=== PATIENT | female | born 2000 | race Caucasian/White ===

== ENCOUNTER 2021-04-25 14:30 | Emergency (ER) | payer BC, OTHER ==
[2021-04-25 15:23] LABS: BLOOD UREA NITROGEN,BUN 11 mg/dL (7.0-18.0); CARBON DIOXIDE,CO2 26.7 mmol/L (21.0-32.0); CHLORIDE,CL 103 mmol/L (98-107); GLUCOSE RANDOM 111 mg/dL (74-106); POTASSIUM,K 3.7 mmol/L (3.5-5.1); SODIUM,NA 138 mmol/L (136-145)
--- NOTE | 2021-04-25 15:54 | EDM.PDOC ---
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 She reports she is approximately 4 weeks , has had 3+ tests at home. This morning she woke up and went to the bathroom when she noted some blood on the toilet tissue. Throughout the day the bleeding has increased similar to a menstrual period. She does have lab work tomorrow scheduled for a quantitative hCG. 1 para 0. No recent pelvic activity or trauma. Patient denies any fever, chills, headache, change in vision, syncope or near syncope. Denies any chest pain, back pain, shortness of breath or cough. Denies any vomiting, diarrhea, constipation or dysuria. Review of systems: As per history of present illness and below otherwise all systems reviewed and negative. Past medical history: As per history of present illness and as reviewed below otherwise noncontributory. Surgical history: As per history of present illness and as reviewed below otherwise noncontributory. Social history: See social history for further information Family history: As per history of present illness and as reviewed below otherwise noncontributory. Physical exam: General: Well developed and well nourished 21-year-old female. Alert and orientated x 3. Nontoxic in appearance and in no acute distress. Vital signs are stable and have been reviewed by me. Nursing notes were reviewed. HEENT: Atraumatic, normocephalic, pupils equal and reactive bilaterally, negative for conjunctival pallor or scleral icterus, mucous membranes moist, TMs normal bilaterally, throat clear, neck supple, nontender, trachea midline. No drooling or trismus noted. No meningeal signs. No hot potato voice noted. Lungs: Clear to auscultation bilaterally. No wheezes, rales, or rhonchi. Chest nontender. Normal work of breathing, no accessory muscles used. Heart: S1S2, regular rate and rhythm without overt murmur, gallops, or rubs. No JVD. No peripheral edema Abdomen: Soft, nondistended, nontender. Normoactive bowel sounds. Negative for masses or costovertebral tenderness. Skin: Intact, warm, dry. No lesions or rashes noted. Hematologic: No petechiae or purpra. Mucosa appropriate color and normal nail bed color and refill. Extremities: Atraumatic, moves all extremities per self without difficulty or deficits, negative for cords or calf pain. Neurovascular unremarkable. Neuro: Awake, alert, oriented. Cranial nerves II through XII unremarkable. Cerebellum unremarkable. Motor and sensory unremarkable throughout. Exam nonfocal. Psychiatric: Mood and affect are appropriate. Normal thought process. Answering questions appropriately. Notes: *This patient was seen and evaluated during the 2019 SARS-CoV-2 novel coronavirus pandemic period. Community viral transmission is ongoing at time of this encounter and the emergency department is operating under pandemic response procedures. Labs show a Quant HCG 8. Ultrasound shows no findings for intrauterine pre gnancy. Endometrial stripe measures 4 millimeters. Small amount of fluid in the endometrial cavity. Normal ovaries normal blood flow to both ovaries. No adnexal mass. No free fluid. I have talked with the patient about today's findings, in addition to providing specific details for plan of care. Encouraged her to have her quantitative hCG repeated in 1 to 2 days. She states she does have an appo intment tomorrow, will follow up with these findings. Reassessment at the time of disposition demonstrates that the patient is in no acute distress. The patient is stable for discharge, counseling was provided and we discussed in great detail signs and symptoms that would prompt them to return to the Emergency Department. Medication, follow up and supportive care measures were reviewed and discussed. Voices understanding and is agreeable to plan of care. Denies any further questions or concerns at this time. Diagnostics: CBC, CMP, Quant HCG, UA, Therapeutics: None Prescription: None Impression: Threatened miscarriage Plan: 1. Please start and/or continue to take your vitamin with folic acid once daily. 2. Pelvic rest until cleared by your OBGYN (no tampons, sex, etc...) 3. Tylenol as needed for pain management. 4. Follow up with your SOCIAL INSURANCE ANALYST in the next 1-2 days. If your symptoms should worsen, new symptoms develop or any of the signs and symptoms we discussed should arise please return to the emergency room or call 911 (if needed). Definitive disposition and diagnosis as appropriate pending reevaluation and review of above. lower abdominal Pain Score (Numeric/FACES): 8 - Related Data Allergies Allergy/AdvReac Type Severity Reaction Status Date / Time No Known Allergies Allergy Verified 04/25/21 14:48 Home Meds: Home Meds . [No Known Home Meds] 04/25/21 [History] Past Medical History - Past Health History Medical/Surgical History: Denies Medical/Surgical History Respiratory History: Reports: Asthma - Infectious Disease History Infectious Disease History: Reports: Chicken Pox, Novel Coronavirus Social & Family History - Family History Family Medical History: No Pertinent Family History - Tobacco Use Tobacco Use Status *Q: Never Tobacco User - Recreational Drug Use Recreational Drug Use: No ED ROS GENERAL - Review of Systems Review Of Systems: Comprehensive ROS is negative, except as noted in HPI. ED EXAM - Physical Exam Exam: See Below (See dictation) Course - Vital Signs Last Recorded V/S: Last Vital Signs Temp 96.8 F L 04/25/21 14:44 Pulse 99 04/25/21 17:25 Resp 16 04/25/21 17:25 BP 130/82 04/25/21 17:25 Pulse Ox 98 04/25/21 17:25 - Orders/Labs/Meds Labs: Laboratory Tests 04/25/21 04/25/21 04/25/21 Range/Units 15:00 15:00 15:00 WBC 8.11 (4.0-11.0) K/uL RBC 4.94 (4.30-5.90) M/uL Hgb 14.6 (12.0-16.0) g/dL Hct 43.6 (36.0-46.0) % MCV 88.3 (80.0-98.0) fL MCH 29.6 (27.0-32.0) pg MCHC 33.5 (31.0-37.0) g/dL RDW Std Deviation 39.1 (28.0-62.0) fl RDW Coeff of Alesia 12 (11.0-15.0) % Plt Count 342 (150-400) K/uL MPV 10.30 (7.40-12.00) fL Neut % (Auto) 61.1 (48.0-80.0) % Lymph % (Auto) 24.0 (16.0-40.0) % Billings % (Auto) 5.7 (0.0-15.0) % Eos % (Auto) 9.0 H (0.0-7.0) % Baso % (Auto) 0.2 (0.0-1.5) % Neut # (Auto) 5.0 (1.4-5.7) K/uL Lymph # (Auto) 2.0 (0.6-2.4) K/uL Billings # (Auto) 0.5 (0.0-0.8) K/uL Eos # (Auto) 0.7 (0.0-0.7) K/uL Baso # (Auto) 0.0 (0.0-0.1) K/uL Nucleated RBC % 0.0 /100WBC Nucleated RBCs # 0 K/uL Sodium 138 (136-145) mmol/L Potassium 3.7 (3.5-5.1) mmol/L Chloride 103 (98-107) mmol/L Carbon Dioxide 26.7 (21.0-32.0) mmol/L BUN 11 (7.0-18.0) mg/dL Creatinine 0.7 (0.6-1.0) mg/dL Est Cr Clr Drug Dosing 98.86 mL/min Estimated GFR (MDRD) > 60.0 ml/min Glucose 111 H (74-106) mg/dL Calcium 8.9 (8.5-10.1) mg/dL Total Bilirubin 0.8 (0.2-1.0) mg/dL AST 16 (15-37) IU/L ALT 26 (14-63) IU/L Alkaline Phosphatase 56 (46-116) U/L Total Protein 8.1 (6.4-8.2) g/dL Albumin 3.9 (3.4-5.0) g/dL Globulin 4.2 H (2.6-4.0) g/dL Albumin/Globulin Ratio 0.9 (0.9-1.6) HCG, Quant 8.0 mIU/mL Urine Color Urine Appearance Urine pH (5.0-8.0) Ur Specific Oldham (1.001-1.035) Urine Protein (NEGATIVE) mg/dL Urine Glucose (UA) (NEGATIVE) mg/dL Urine Ketones (NEGATIVE) mg/dL Urine Occult Blood (NEGATIVE) Urine Nitrite (NEGATIVE) Urine Bilirubin (NEGATIVE) Urine Urobilinogen (<2.0) EU/dL Ur Leukocyte Esterase (NEGATIVE) Urine RBC (0-2/HPF) Urine WBC (0-5/HPF) Ur Epithelial Cells (NONE-FEW) Urine Bacteria (NEGATIVE) Urine Mucus (NONE-MOD) 04/25/21 Range/Units 15:17 WBC (4.0-11.0) K/uL RBC (4.30-5.90) M/uL Hgb (12.0-16.0) g/dL Hct (36.0-46.0) % MCV (80.0-98.0) fL MCH (27.0-32.0) pg MCHC (31.0-37.0) g/dL RDW Std Deviation (28.0-62.0) fl RDW Coeff of Alesia (11.0-15.0) % Plt Count (150-400) K/uL MPV (7.40-12.00) fL Neut % (Auto) (48.0-80.0) % Lymph % (Auto) (16.0-40.0) % Billings % (Auto) (0.0-15.0) % Eos % (Auto) (0.0-7.0) % Baso % (Auto) (0.0-1.5) % Neut # (Auto) (1.4-5.7) K/uL Lymph # (Auto) (0.6-2.4) K/uL Billings # (Auto) (0.0-0.8) K/uL Eos # (Auto) (0.0-0.7) K/uL Baso # (Auto) (0.0-0.1) K/uL Nucleated RBC % /100WBC Nucleated RBCs # K/uL Sodium (136-145) mmol/L Potassium (3.5-5.1) mmol/L Chloride (98-107) mmol/L Carbon Dioxide (21.0-32.0) mmol/L BUN (7.0-18.0) mg/dL Creatinine (0.6-1.0) mg/dL Est Cr Clr Drug Dosing mL/min Estimated GFR (MDRD) ml/min Glucose (74-106) mg/dL Calcium (8.5-10.1) mg/dL Total Bilirubin (0.2-1.0) mg/dL AST (15-37) IU/L ALT (14-63) IU/L Alkaline Phosphatase (46-116) U/L Total Protein (6.4-8.2) g/dL Albumin (3.4-5.0) g/dL Globulin (2.6-4.0) g/dL Albumin/Globulin Ratio (0.9-1.6) HCG, Quant mIU/mL Urine Color RED Urine Appearance CLOUDY Urine pH 6.0 (5.0-8.0) Ur Specific Oldham >= 1.030 (1.001-1.035) Urine Protein 100 H (NEGATIVE) mg/dL Urine Glucose (UA) NEGATIVE (NEGATIVE) mg/dL Urine Ketones TRACE H (NEGATIVE) mg/dL Urine Occult Blood LARGE H (NEGATIVE) Urine Nitrite NEGATIVE (NEGATIVE) Urine Bilirubin NEGATIVE (NEGATIVE) Urine Urobilinogen 0.2 (<2.0) EU/dL Ur Leukocyte Esterase NEGATIVE (NEGATIVE) Urine RBC TOO DOLORES (0-2/HPF) Urine WBC 0-1 (0-5/HPF) Ur Epithelial Cells FEW (NONE-FEW) Urine Bacteria FEW (NEGATIVE) Urine Mucus LIGHT (NONE-MOD) Departure - Departure Time of Disposition: 17:15 Disposition: Home, Self-Care 01 Clinical Impression: Threatened miscarriage in early - Discharge Information Instructions: Threatened Miscarriage, [id number] Referrals: PCP,None [Primary Care Provider] - Forms: ED Department Discharge Additional Instructions: The following information is given to patients seen in the emergency department who are being discharged to home. This information is to outline your options for follow-up care. We provide all patients seen in our emergency department with a follow-up referral. The need for follow-up, as well as the timing and circumstances, are variable depending upon the specifics of your emergency department visit. If you don't have a primary care physician on staff, we will provide you with a referral. We always advise you to contact your personal physician following an emergency department visit to inform them of the circumstance of the visit and for follow-up with them and/or the need for any referrals to a consulting specialist. The emergency department will also refer you to a specialist when appropriate. This referral assures that you have the opportunity for follow-up care with a specialist. All of these measure are taken in an effort to provide you with optimal care, which includes your follow-up. Under all circumstances we always encourage you to contact your private physician who remains a resource for coordinating your care. When calling for follow-up care, please make the office aware that this follow-up is from your recent emergency room visit. If for any reason you are refused follow-up, please contact the [facility] Emergency [facility] at and asked to speak to the emergency department charge nurse. [facility] [address] [place] [id number] [id number] Thank you for choosing the [facility] emergency department in [place] for your medical needs today. It was a pleasure caring for you. Today you were seen in the emergency department for vaginal bleeding and . 1. Please start and/or continue to take your vitamin with folic acid once daily. 2. Pelvic rest until cleared by your OBGYN (no tampons, sex, etc...) 3. Tylenol as needed for pain management. 4. Follow up with your SOCIAL INSURANCE ANALYST in the next 1-2 days. REPEAT QUANT HCG IN 2 DAYS. TODAY YOUR LAB WAS HCG 8.0 5. If your symptoms should worsen, new symptoms develop or any of the signs and symptoms we discussed should arise please return to the emergency room or call 911 (if needed). Sepsis Event Note (ED) - Evaluation Sepsis Screening Result: No Definite Risk - Focused Exam Vital Signs: Vital Signs Temp Pulse Resp BP Pulse Ox 04/25/21 17:25 99 16 130/82 98 04/25/21 14:44 96.8 F L 110 H 18 135/96 H 97
--- NOTE | 2021-04-25 17:13 | US ---
INDICATION: Left lower quadrant pain TECHNIQUE: Real-time mancilla-scale imaging of the pelvis was performed. No comparison FINDINGS: No intrauterine gestational sac or pole seen. Endometrial stripe measures 4 millimeters. Slight heterogeneity of the endometrium. Small amount of fluid in the endometrial cavity. Ovaries are seen both ovaries appear normal blood flow to both ovaries. No free fluid or adnexal mass visualized. IMPRESSION: 1. No findings for intrauterine . Endometrial stripe measures 4 millimeters. Small amount of fluid in the endometrial cavity. Normal ovaries normal blood flow to both ovaries. No adnexal mass. No free fluid. Findings could be on the basis of very early IUP, SAB. Ectopic not completely excluded however no adnexal mass or free fluid. Recommend correlation with hCG levels and close interval follow-up. Dictated by Yudith Cabral MD @ 04/25/2021 5:10:[address] Yudith Cabral @ Apr 25 2021 5:10PM
== END 2021-04-25 17:28 | disposition home or self-care (01) ==
LOC: MW.ED 14:30
DX: O20.0 Threatened abortion (principal); Z3A.01 Less than 8 weeks gestation of pregnancy
CPT/HCPCS: 36415; 76817; 76817-26; 80053; 81001; 84702; 85025; 99283; 99284-25

== ENCOUNTER 2021-12-31 15:32 | Inpatient (IN) | payer BC ==
[2021-12-31 16:58] LABS: BLOOD UREA NITROGEN,BUN 8 mg/dL (7.0-18.0); CARBON DIOXIDE,CO2 21.6 mmol/L (21.0-32.0); CHLORIDE,CL 103 mmol/L (98-107); GLUCOSE RANDOM 96 mg/dL (74-106); POTASSIUM,K 3.4 mmol/L (3.5-5.1); SODIUM,NA 139 mmol/L (136-145)
[2021-12-31 17:16] LABS: CORONAVIRUS COVID-19 NAA NEGATIVE (NEGATIVE); INFLUENZA A NAA POSITIVE (NEGATIVE); INFLUENZA B NAA NEGATIVE (NEGATIVE)
[2021-12-31] MEDS: Lactated Ringers 1,000 ML IV SCH ×3 (17:18→23:49)
[2021-12-31] MEDS ORDERED: Oseltamivir 75 MG Cap PO ONE (18:24)
[2021-12-31] MEDS: Ondansetron 4 MG/2 ML SDV IVPUSH PRN (19:02)
[2021-12-31] MEDS: Acetaminophen 500 MG Tab PO PRN (19:05)
[2022-01-01] MEDS: Acetaminophen 500 MG Tab PO PRN ×4 (00:36→21:46)
[2022-01-01 07:50] LABS: BLOOD UREA NITROGEN,BUN 7 mg/dL (7.0-18.0)
[2022-01-01] MEDS ORDERED: NIFEdipine 30 MG Tab.ER PO ONE ×3 (10:25→23:00)
[2022-01-01] MEDS: Oseltamivir 75 MG Cap PO SCH ×2 (11:14→21:46)
[2022-01-02] MEDS: Acetaminophen 500 MG Tab PO PRN ×2 (04:06→15:00)
[2022-01-02] MEDS ORDERED: Sodium Chloride 0.9% 2.5 ML Syringe FLUSH PRN (10:21)
[2022-01-02] MEDS ORDERED: Water For Irrigation,Sterile 1,000 ML Container IRR PRN (10:21)
[2022-01-02] MEDS ORDERED: Tranexamic Acid 1,000 MG in Sodium Chloride 0.9% 100 ML IV PRN (10:21)
[2022-01-02] MEDS ORDERED: Terbutaline 1 MG/ML SDV SUBCUT PRN (10:21)
[2022-01-02] MEDS ORDERED: Sodium Chloride 0.9% 20 ML SDV IV PRN (10:21)
[2022-01-02] MEDS ORDERED: Methylergonovine 0.2 MG/1 ML Amp IM PRN (10:21)
[2022-01-02] MEDS ORDERED: Carboprost Tromethamine 250 MCG/1 ML Amp IM PRN (10:21)
[2022-01-02] MEDS ORDERED: Misoprostol 200 MCG Tab PO PRN (10:21)
[2022-01-02] MEDS ORDERED: Lidocaine 1% 50 ML MDV INJECT PRN (10:21)
[2022-01-02] MEDS ORDERED: Butorphanol 1 MG/ML SDV IVPUSH PRN (10:21)
[2022-01-02] MEDS ORDERED: Ondansetron 4 MG/2 ML SDV IVPUSH PRN (10:21)
[2022-01-02] MEDS ORDERED: Sodium Chloride 0.9% 10 ML Syringe FLUSH PRN (10:21)
[2022-01-02] MEDS ORDERED: Oxytocin/0.9 % Sodium Chloride 30 UNIT/500 ML BAG IV SCH ×2 (10:30)
[2022-01-02] MEDS ORDERED: Lactated Ringers 1,000 ML IV SCH (10:30)
[2022-01-02] MEDS: Oseltamivir 75 MG Cap PO SCH ×2 (10:56→23:13)
[2022-01-02] MEDS ORDERED: Misoprostol 25 MCG (1/4 of 100 MCG) Tab VAG PRN (12:00)
[2022-01-02] MEDS ORDERED: Misoprostol 25 MCG (1/4 of 100 MCG) Tab PO PRN (12:00)
[2022-01-02 12:11] LABS: BLOOD UREA NITROGEN,BUN 4 mg/dL (7.0-18.0); CHLORIDE,CL 104 mmol/L (98-107); GLUCOSE RANDOM 124 mg/dL (74-106); POTASSIUM,K 3.3 mmol/L (3.5-5.1); SODIUM,NA 140 mmol/L (136-145)
[2022-01-02] MEDS ORDERED: Misoprostol 50 MCG (1/2 of 100 MCG) Tab VAG PRN (16:00)
[2022-01-02] MEDS ORDERED: Misoprostol 50 MCG (1/2 of 100 MCG) Tab PO PRN (16:00)
[2022-01-02] MEDS: Calcium Carbonate 500 MG Tab.Chew PO PRN (21:59)
[2022-01-02] MEDS ORDERED: Ropivacaine 100 ML ONE (23:36)
[2022-01-02] MEDS ORDERED: Bupivacaine 0.25% 10 ML SDV ONE (23:37)
[2022-01-03] MEDS ORDERED: ePHEDrine 50 MG/ML SDV ONE (00:26)
[2022-01-03] MEDS ORDERED: Ondansetron 4 MG/2 ML SDV ONE (00:26)
[2022-01-03] MEDS: Ondansetron 4 MG/2 ML SDV IVPUSH PRN (00:29)
[2022-01-03] MEDS: Calcium Carbonate 500 MG Tab.Chew PO PRN (00:41)
[2022-01-03] MEDS: Acetaminophen 500 MG Tab PO PRN ×2 (02:50→16:45)
[2022-01-03] MEDS ORDERED: Witch Hazel Medicated Pads 40/Jar TOP PRN (06:27)
[2022-01-03] MEDS ORDERED: Acetaminophen 500 MG Tab PO PRN (06:27)
[2022-01-03] MEDS ORDERED: Ibuprofen 400 MG Tab PO PRN (06:27)
[2022-01-03] MEDS ORDERED: oxyCODONE 5 MG Tab PO PRN (06:27)
[2022-01-03] MEDS ORDERED: Bisacodyl 10 MG Supp RECTAL PRN (06:27)
[2022-01-03] MEDS ORDERED: Benzocaine/Menthol 20%-0.5% Spray 78 GM Cannister TOP PRN (06:27)
[2022-01-03] MEDS ORDERED: Lanolin 100% Cream 7 GM Tube TOP PRN (06:27)
[2022-01-03] MEDS: Ibuprofen 800 MG Tab PO PRN ×2 (07:00→19:48)
[2022-01-03] MEDS: Oseltamivir 75 MG Cap PO SCH ×2 (08:36→20:35)
[2022-01-03] MEDS ORDERED: Labetalol 100 MG Tab PO ONE ×2 (16:21→19:43)
[2022-01-03] MEDS: Docusate Sodium 100 MG Cap PO PRN (19:48)
[2022-01-04] MEDS: Acetaminophen 500 MG Tab PO PRN ×3 (04:30→22:05)
[2022-01-04] MEDS: Docusate Sodium 100 MG Cap PO PRN (08:31)
[2022-01-04] MEDS: Oseltamivir 75 MG Cap PO SCH ×2 (08:31→22:04)
[2022-01-04] MEDS: Labetalol 100 MG Tab PO SCH ×2 (08:32→21:00)
[2022-01-04] MEDS ORDERED: NIFEdipine 30 MG Tab.ER PO ONE (12:04)
[2022-01-04] MEDS ORDERED: NIFEdipine 10 MG Cap PO PRN (18:23)
[2022-01-04] MEDS: Ibuprofen 800 MG Tab PO PRN (22:06)
[2022-01-05] MEDS ORDERED: NIFEdipine 30 MG Tab.ER ONE (00:22)
[2022-01-05] MEDS: NIFEdipine 30 MG Tab.ER PO SCH ×2 (00:23→09:07)
[2022-01-05] MEDS: Acetaminophen 500 MG Tab PO PRN (05:34)
[2022-01-05] MEDS: Oseltamivir 75 MG Cap PO SCH (08:37)
[2022-01-05] MEDS: Ibuprofen 800 MG Tab PO PRN (09:08)
[2022-01-05] MEDS: Labetalol 100 MG Tab PO SCH (09:10)
== END 2022-01-05 14:20 | disposition home or self-care (01) | DRG 560 ==
LOC: MW.OBCHECK 15:32 → MW.OB 15:33 → MW.OBCHECK 01-01 18:28 → OBSVTOIN 01-03 06:17 → MW.OB 01-03 12:59
PROVIDERS: ADMIT Obstetrics & Gynecology; ATTEND Obstetrics & Gynecology
PROC: 3E0P7VZ Introduction of Hormone into Female Reproductive, Via Natural or Artificial Opening (ICD-10-PCS; principal; 2022-01-03)
PROC: 3E033VJ Introduction of Other Hormone into Peripheral Vein, Percutaneous Approach (ICD-10-PCS; 2022-01-03)
PROC: 10E0XZZ Delivery of Products of Conception, External Approach (ICD-10-PCS; 2022-01-03)
PROC: 3E0R3BZ Introduction of Anesthetic Agent into Spinal Canal, Percutaneous Approach (ICD-10-PCS; 2022-01-03)
PROC: 00HU33Z Insertion of Infusion Device into Spinal Canal, Percutaneous Approach (ICD-10-PCS; 2022-01-03)
DX: O98.52 Other viral diseases complicating childbirth (principal); Z3A.36 36 weeks gestation of pregnancy; Z37.0 Single live birth; J10.1 Influenza due to other identified influenza virus with other respiratory manifestations; Z20.822 Contact with and (suspected) exposure to COVID-19
CPT/HCPCS: 01967; 0240U; 36415; 36430; 51702; 59025; 59409; 80053; 81001; 81003; 82565; 82570; 83615; 84156; 84450; 84460; 84520; 84550; 85014; 85018; 85025; 85027; 85460; 86592; 86850; 86900; 86901; 87653; A9270-GY; J2405; J2590; J2790; J2795; J3490; J7120

== ENCOUNTER 2025-01-13 16:52 | Emergency (ER) | payer BC ==
[2025-01-13] MEDS ORDERED: Sodium Chloride 0.9% 2.5 ML Syringe FLUSH PRN (17:41)
[2025-01-13] MEDS ORDERED: Sodium Chloride 0.9% 20 ML SDV IV PRN (17:41)
[2025-01-13] MEDS ORDERED: Sodium Chloride 0.9% 10 ML Syringe FLUSH PRN (17:41)
[2025-01-13 17:55] LABS: APPEARANCE,URINE SLT CLOUDY; COLOR,URINE YELLOW; GLUCOSE,URINE NEGATIVE (NEGATIVE); KETONES,URINE TRACE mg/dL (NEGATIVE); LEUKOCYTE ESTERASE,URINE NEGATIVE (NEGATIVE); NITRITE,URINE NEGATIVE (NEGATIVE); OCCULT BLOOD,URINE NEGATIVE (NEGATIVE); PH,URINE 5.5 (5.0-8.0); PROTEIN,URINE 100 mg/dL (NEGATIVE)
[2025-01-13 18:00] LABS: BILIRUBIN,URINE SMALL (NEGATIVE)
[2025-01-13 18:05] LABS: BASOPHILS ABSOLUTE AUTO 0.06 K/uL (0.00-0.20); BASOPHILS PERCENT AUTO 0.5 % (0.0-1.0); EOSINOPHILS ABSOLUTE AUTO 0.13 K/uL (0.00-0.45); HEMATOCRIT 39.5 % (37.0-47.0); HEMOGLOBIN 12.8 g/dL (12.0-16.0); IMMATURE GRAN ABSOLUTE AUTO 0.04 K/uL (0.00-0.05); IMMATURE GRAN PERCENT AUTO 0.3 % (0.0-0.4); LYMPHOCYTES ABSOLUTE AUTO 1.88 K/uL (1.00-4.80); LYMPHOCYTES PERCENT AUTO 14.8 % (24.0-44.0); MEAN CORPUSCULAR HEMOGLOBIN 27.5 pg (28.0-32.0); MEAN CORPUSCULAR HGB CONC 32.4 g/dL (32.0-36.0); MEAN CORPUSCULAR VOLUME 84.8 fL (83.0-99.0); MEAN PLATELET VOLUME 10.5 fL (9.4-12.3); MONOCYTES ABSOLUTE AUTO 0.76 K/uL (0.00-0.80); NEUTROPHILS ABSOLUTE AUTO 9.84 K/uL (1.80-7.70); NEUTROPHILS PERCENT AUTO 77.4 % (41.0-71.0); PLATELET COUNT,PLT 291 K/uL (150-400); RED BLOOD CELL COUNT 4.66 M/uL (4.10-5.30); WHITE BLOOD CELL COUNT,WBC 12.71 K/uL (3.9-11.3)
[2025-01-13 18:06] LABS: BACTERIA,URINE FEW (NEGATIVE); EPITHELIAL CELLS,URINE MODERATE (NONE-FEW); RBC,URINE 0-2 (0-2/HPF)
[2025-01-13 18:07] LABS: MUCUS,URINE MODERATE (NONE-MOD)
[2025-01-13] MEDS: Iopamidol 755 MG/ML 500 ML Multipack Bottle IVPUSH STA (18:33)
[2025-01-13 18:36] LABS: A/G RATIO 1.1 (0.9-1.6); ALANINE AMINOTRANSFERASE,ALT 141 IU/L (14-63); ALBUMIN 4.1 g/dL (3.4-5.0); ALKALINE PHOSPHATASE 97 U/L (46-116); ASPARTATE AMNIOTRANSFERASE,AST 133 IU/L (15-37); BLOOD UREA NITROGEN,BUN 21 mg/dL (7.0-18.0); CALCIUM 9.2 mg/dL (8.5-10.1); CARBON DIOXIDE,CO2 23.5 mmol/L (21.0-32.0); CHLORIDE,CL 103 mmol/L (98-107); CREATININE 1.1 mg/dL (0.6-1.0); GLUCOSE RANDOM 121 mg/dL (74-106); LIPASE 59 U/L (16-77); MAGNESIUM 2.1 mg/dL (1.8-2.4); POTASSIUM,K 3.8 mmol/L (3.5-5.1); PROTEIN TOTAL,TP 7.9 g/dL (6.4-8.2); SODIUM,NA 139 mmol/L (136-145)
[2025-01-13 18:37] LABS: ESTIMATED GFR 71 mL/min (>60)
[2025-01-13 18:45] LABS: INR 1.02 (0.86-1.11)
[2025-01-13] MEDS: Sodium Chloride 0.9% 1,000 ML IV ONE ×2 (18:46→19:41)
[2025-01-13] MEDS: Ondansetron 4 MG Tab.DIS PO ONE (18:46)
[2025-01-13 19:08] LABS: LACTIC ACID 1.7 mmol/L (0.4-2.0)
== END 2025-01-13 21:21 | disposition home or self-care (01) ==
LOC: MW.ED 16:52
DX: K80.50 Calculus of bile duct without cholangitis or cholecystitis without obstruction (principal); J45.909 Unspecified asthma, uncomplicated; Z79.899 Other long term (current) drug therapy; Z88.0 Allergy status to penicillin; Z91.048 Other nonmedicinal substance allergy status
CPT/HCPCS: 36415; 74177; 76705; 80053; 81001; 81025; 83605; 83690; 83735; 84484; 85025; 85610; 85730; 87040; 96360; 96361; 99284; A9270; J7030; Q9967; 99283

== ENCOUNTER 2025-01-21 09:28 | Day surgery (SDC) | payer BC ==
[~2025-01-21 09:28] MED LIST: Albuterol 0.083% 2.5 MG/3 ML Neb Soln NEB PRN; HYDROmorphone 1 MG/ML Syringe IVPUSH PRN; Metoclopramide 10 MG/2 ML SDV IVPUSH PRN; Morphine 2 MG/ML SYRINGE IVPUSH PRN; Naloxone 0.4 MG/ML SDV IVPUSH PRN; Ondansetron 4 MG/2 ML SDV IVPUSH PRN; Phenylephrine HCl In 0.9% NaCl 1 MG/10 ML Syringe IVPUSH PRN; fentaNYL 50 MCG/ML SDV IVPUSH PRN
[2025-01-21] MEDS ORDERED: Rocuronium Bromide 50 MG/5 ML Syringe ONE (10:01)
[2025-01-21] MEDS ORDERED: Ondansetron 4 MG/2 ML SDV ONE (10:01)
[2025-01-21] MEDS ORDERED: Dexamethasone 4 MG/ML 5 ML MDV ONE (10:01)
[2025-01-21] MEDS ORDERED: Lidocaine 1% 5 ML VIAL ONE (10:01)
[2025-01-21] MEDS ORDERED: Midazolam 1 MG/ML 2 ML SDV ONE (10:02)
[2025-01-21] MEDS ORDERED: Propofol 200 MG/20 ML SDV ONE (10:02)
[2025-01-21] MEDS ORDERED: fentaNYL 100 MCG/2 ML SDV ONE (10:02)
[2025-01-21] MEDS ORDERED: Bupivacaine 0.5% 30 ML SDV ONE ×2 (10:18→10:22)
[2025-01-21] MEDS ORDERED: Bupivacaine 0.25% 30 ML SDV ONE (10:22)
[2025-01-21] MEDS ORDERED: Clindamycin Phosphate in D5W 50 ML IV ONE (10:43)
[2025-01-21] MEDS: Clindamycin Phosphate in D5W 900 MG in Premix Bag 1 BAG IV ONE (10:49)
[2025-01-21] MEDS ORDERED: Sugammadex Sodium 200 MG/2 ML VIAL IV ONE (11:32)
[2025-01-21] MEDS ORDERED: Ketorolac 30 MG/ML SDV ONE (11:32)
[2025-01-21] MEDS ORDERED: Phenylephrine HCl In 0.9% NaCl 1 MG/10 ML Syringe ONE (11:45)
[2025-01-21] MEDS: Lactated Ringers 1,000 ML IV SCH (14:32)
== END 2025-01-21 15:30 | disposition home or self-care (01) ==
LOC: MW.SDS 09:28
PROVIDERS: ATTEND Surgery
DX: K80.10 Calculus of gallbladder with chronic cholecystitis without obstruction (principal); I10 Essential (primary) hypertension; Z88.0 Allergy status to penicillin; Z91.09 Other allergy status, other than to drugs and biological substances; Z79.899 Other long term (current) drug therapy; Z87.891 Personal history of nicotine dependence
CPT/HCPCS: 47562; 81025; J0131; J0665; J0736; J1100; J1885; J2003; J2250; J2371; J2405; J2704; J3010; J7120; 00790; 64486; J3490